=== PATIENT | male | born 1970 | race Caucasian/White ===

== ENCOUNTER → 2021-04-30 | Day surgery (SDC) | payer MEDICARE ==
[~2021-04-30] VITALS: Ht 170.2 cm; Wt 99.8 kg
[~2021-04-30] MED LIST: ATORVASTATIN CA10 MG PO; CELEXA 40MG TAB40 MG PO; DEPO-TESTO100 MG/1 M SC; DICLOFENAC POTA50 MG PO; GABAPENTIN400 MG PO; HYDROCODON-ACE1 EAC2 PO; HYDROCODON-ACE1 EAC6 PO; IBUPROFEN200 MG PO; LISINOPRIL 10MG10 MG PO; MELOXICAM15 MG PO; NEURONTIN400 MG PO; NEURONTIN800 MG PO; NORCO 7.5-3251 EACH PO; PERCOCET 5-3251 EACH PO; TESTOSTERONE
[2021-04-30 12:08] LABS: HCT 48.7 % (42.0-52.0); HGB 16.5 g/dl (13.2-18.0); MCH 31.3 pg (25.0-31.0); MCHC 33.9 g/dL (32.0-36.0); MCV 92.2 fL (78.0-100.0); MPV 10.7 fL (6.0-9.5); RBC 5.28 M/uL (4.70-6.00); RDW 12.5 % (11.5-14.0); WBC 6.3 K/uL (4.0-10.5)
[2021-04-30 12:35] LABS: ALBUMIN 3.8 g/dL (3.4-5.0); BILIRUBIN - TOTAL 0.5 mg/dL (0.2-1.0); BUN/CREAT RATIO (CALC) 14.6 RATIO; CREATININE 1.03 mg/dL (0.67-1.17); GLOBULIN (CALCULATION) 3.5 g/dL; POTASSIUM 4.2 mmol/L (3.5-5.1); TOTAL PROTEIN 7.3 g/dL (6.4-8.2)
== END | disposition home or self-care (01) ==
LOC: FAS 11:27
PROVIDERS: Anesthesiology
DX: S52.572A Other intraarticular fracture of lower end of left radius, initial encounter for closed fracture (principal); S52.612A Displaced fracture of left ulna styloid process, initial encounter for closed fracture; G56.02 Carpal tunnel syndrome, left upper limb; I10 Essential (primary) hypertension
CPT/HCPCS: 36415; 73100; 76000; 80053; 93005; C1713; C1769; J0690; J1100; J1170; J1885; J2001; J2250; J2405; J2704; J2795; J3010; J7120

== ENCOUNTER → 2022-04-24 | Day surgery (SDC) | payer MEDICARE ==
[~2022-04-24] VITALS: Ht 170.2 cm; Wt 99.8 kg
[2022-04-24 08:42] LABS: HCT 49.8 % (42.0-52.0); HGB 16.8 g/dl (13.2-18.0); MCH 31.5 pg (25.0-31.0); MCHC 33.7 g/dL (32.0-36.0); MCV 93.3 fL (78.0-100.0); RBC 5.34 M/uL (4.70-6.00); RDW 13.8 % (11.5-14.0); WBC 7.5 K/uL (4.0-10.5)
[2022-04-24 09:43] LABS: BUN/CREAT RATIO (CALC) 9.9 RATIO; CREATININE 1.11 mg/dL (0.67-1.17); POTASSIUM 4.2 mmol/L (3.5-5.1)
== END | disposition home or self-care (01) ==
LOC: FAS 03-12 08:30
PROVIDERS: Surgery
DX: Z12.11 Encounter for screening for malignant neoplasm of colon (principal); K58.9 Irritable bowel syndrome, unspecified; E78.5 Hyperlipidemia, unspecified; I10 Essential (primary) hypertension
CPT/HCPCS: 36415; 80048; 82962; J1610; J2704; J7120